=== PATIENT | female | born 1960 | race Caucasian/White ===

== ENCOUNTER 2024-10-18 21:49 | Inpatient (IN) | payer OTHER ==
[~2024-10-18] VITALS: Ht 149.9 cm; Wt 68.2 kg
[2024-10-18] MEDS: LABETALOL 5MG/ML 4ML INJ IV ONE (22:54)
[2024-10-19 01:19] LABS: BASOPHILS % 0.8 % (0.0-2.0); EOSINOPHILS % 1.9 % (0.0-5.0); HEMATOCRIT. 41.4 % (36.0-48.0); HEMOGLOBIN. 14.2 g/dL (12.0-16.0); LYMPHOCYTES % 37.2 % (20.0-50.0); MEAN PLATELET VOLUME 9.3 fl (7.4-10.4); MONOCYTES % 7.5 % (2.0-8.0); NEUTROPHILS % 52.6 % (40.0-76.0); PLATELET 140 x1000/uL (130-400); RED BLOOD CELL COUNT 4.78 mill/uL (4.2-5.4); RED CELL DISTRIBUTION WIDTH 13.0 % (11.6-14.6)
[2024-10-19] MEDS: LABETALOL 5MG/ML 4ML INJ IV NR (01:43)
[2024-10-19 02:34] LABS: CREATININE 0.7 mg/dL (0.6-1.0); UREA NITROGEN BLOOD 10 mg/dL (9-23)
[2024-10-19] MEDS ORDERED: HYDRALAZINE 20MG/ML VIAL IV PRN (02:45)
[2024-10-19] MEDS ORDERED: IPRATROPIUM/ALBUTEROL 0.5-3(2.5)MG/3ML NEB HHN PRN (02:45)
[2024-10-19] MEDS ORDERED: POTASSIUM CHLORIDE 20MEQ TABLET SR PO SCH (02:45)
[2024-10-19] MEDS ORDERED: CLONIDINE 0.1MG TABLET PO PRN (02:45)
[2024-10-19] MEDS ORDERED: ONDANSETRON HCL 4MG/2ML INJ IV PRN (02:45)
[2024-10-19] MEDS ORDERED: DOCUSATE SODIUM 100MG CAPSULE PO PRN (02:45)
[2024-10-19] MEDS ORDERED: ACETAMINOPHEN 325MG TABLET PO PRN ×2 (02:45)
[2024-10-19 02:49] LABS: TROPONIN I HIGH SENSITIVITY 6 ng/L (3.0-34)
[2024-10-19] MEDS: CLONIDINE 0.1MG TABLET PO SCH (02:49)
[2024-10-19] MEDS: HYDRALAZINE 20MG/ML VIAL IV SCH (02:49)
[2024-10-19] MEDS ORDERED: DEXTROSE 50% WATER 50ML SYRINGE IV PRN (03:30)
[2024-10-19] MEDS: BLOOD SUGAR DIAGNOSTIC STRIP TEST SCH (06:45)
[2024-10-19] MEDS: HYDRALAZINE HCL 50MG TABLET PO SCH (06:54)
[2024-10-19 07:53] VITALS: BP 137/64; PULSE 69; RESP 18; TEMP 36.4
[2024-10-19 08:00] VITALS: BP 157/79; PULSE 96; RESP 18; TEMP 36.2; O2SAT 97
[2024-10-19] MEDS: INSULIN LISPRO 100 UNITS/ML SUBCUT SCH (08:59)
[2024-10-19] MEDS ORDERED: *PATIENT'S OWN MEDICATION STORAGE XX SCH (10:45)
[2024-10-19] MEDS: HYDROCHLOROTHIAZIDE 25MG TABLET PO SCH (11:04)
[2024-10-19] MEDS: LISINOPRIL 20MG TABLET PO SCH (11:05)
[2024-10-19] MEDS: POTASSIUM CHLORIDE 20MEQ TABLET SR PO NR (11:06)
[2024-10-19] MEDS: INSULIN GLARGINE 100 UNITS/ML SUBCUT SCH (11:07)
[2024-10-19] MEDS: PANTOPRAZOLE SODIUM 40 MG/VIAL IV SCH (11:45)
[2024-10-19 12:00] VITALS: BP 106/64; PULSE 74; RESP 18; TEMP 36.4; O2SAT 97
[2024-10-19 13:51] LABS: CREATINE KINASE MB FRACTION 0.7 ng/mL (0.5-3.6)
[2024-10-19 13:52] LABS: TROPONIN I HIGH SENSITIVITY < 4 ng/L (3.0-34)
[2024-10-19 16:00] VITALS: BP 138/80; PULSE 94; RESP 17; TEMP 37.7; O2SAT 96
[2024-10-19 18:44] LABS: CREATINE KINASE MB FRACTION < 0.5 ng/mL (0.5-3.6); TROPONIN I HIGH SENSITIVITY < 4 ng/L (3.0-34)
[2024-10-19 20:00] VITALS: BP 116/68; PULSE 67; RESP 18; TEMP 37.1; O2SAT 96
[2024-10-20] VITALS: BP 124/68; PULSE 64; RESP 16; TEMP 37; O2SAT 96
[2024-10-20 01:05] LABS: TROPONIN I HIGH SENSITIVITY < 4 ng/L (3.0-34)
[2024-10-20 04:00] VITALS: BP 148/77; PULSE 66; RESP 16; TEMP 38.2; O2SAT 97
[2024-10-20 06:34] LABS: CREATININE 0.7 mg/dL (0.6-1.0); UREA NITROGEN BLOOD 11 mg/dL (9-23)
[2024-10-20 06:36] LABS: ASPARTATE AMINOTRANSFERASE 39 IU/L (<34); BILIRUBIN TOTAL 2.8 mg/dL (0.1-1.0); PROTEIN TOTAL 6.0 g/dL (6.0-8.3)
[2024-10-20 06:39] LABS: BASOPHILS % 0.7 % (0.0-2.0); EOSINOPHILS % 1.8 % (0.0-5.0); HEMATOCRIT. 42.9 % (36.0-48.0); HEMOGLOBIN. 14.7 g/dL (12.0-16.0); LYMPHOCYTES % 31.5 % (20.0-50.0); MEAN PLATELET VOLUME 9.3 fl (7.4-10.4); MONOCYTES % 5.5 % (2.0-8.0); NEUTROPHILS % 60.5 % (40.0-76.0); PLATELET 165 x1000/uL (130-400); RED BLOOD CELL COUNT 4.90 mill/uL (4.2-5.4); RED CELL DISTRIBUTION WIDTH 13.3 % (11.6-14.6)
[2024-10-20 08:00] VITALS: BP 141/71; RESP 20; TEMP 36.6; O2SAT 95
[2024-10-20] MEDS ORDERED: METF-1149 MT (11:50)
[2024-10-20] MEDS ORDERED: INSU100I28 SQ (11:50)
[2024-10-20] MEDS ORDERED: LISI20TA31 PO (11:50)
[2024-10-20] MEDS ORDERED: HYDR25TA PO (11:50)
[2024-10-20 12:00] VITALS: BP 111/75; PULSE 71; RESP 18; TEMP 36.7; O2SAT 95
[2024-10-20 14:40] VITALS: BP 111/75; PULSE 71; TEMP 98; O2SAT 100
== END 2024-10-20 16:00 | disposition home or self-care (01) | DRG 199 ==
LOC: ER 21:49 → 5WST 10-19 01:04 → EDBEDREQ 10-19 01:09 → EDBEDREQTM 10-19 01:09 → EDBEDREQDT 10-19 01:09 → ENRESERV 10-19 01:19 → 5WST 10-19 04:28
PROVIDERS: ADMIT Internal Medicine; ATTEND Internal Medicine
DX: I16.1 Hypertensive emergency (principal); E87.6 Hypokalemia; R50.9 Fever, unspecified; R74.01 Elevation of levels of liver transaminase levels; R73.9 Hyperglycemia, unspecified; Z91.148 Patient's other noncompliance with medication regimen for other reason
CPT/HCPCS: 36415; 71045; 80048; 80053; 82550; 82553; 82962; 83036; 83880; 84484; 85025; 93005; 99291; A4606; J0360; J1815; J2470; J3490